=== PATIENT | female | born 1970 | race Caucasian/White ===

== ENCOUNTER 2022-04-30 13:37 | Outpatient (CLI) | payer OTHER | END 2022-04-30 13:38 | disposition home or self-care (01) | LOC: ULT 13:37 | PROVIDERS: ATTEND Nurse Practitioner Family | DX: D25.9 Leiomyoma of uterus, unspecified (principal) | CPT/HCPCS: 76856 ==

== ENCOUNTER 2024-03-31 08:24 | Outpatient (CLI) | payer OTHER | END 2024-03-31 08:25 | disposition home or self-care (01) | LOC: BICMAMMO 08:24 | PROVIDERS: ATTEND Nurse Practitioner Family | DX: Z12.31 Encounter for screening mammogram for malignant neoplasm of breast (principal); Z91.89 Other specified personal risk factors, not elsewhere classified | CPT/HCPCS: 77067 ==